=== PATIENT | male | born 1955 | race Two or more races ===

== ENCOUNTER 2019-01-08 07:08 | Outpatient (CLI) | payer OTHER | END 2019-01-08 07:11 | disposition home or self-care (01) | LOC: SONOGRAMA 07:08 | DX: R22.1 Localized swelling, mass and lump, neck (principal) ==

== ENCOUNTER 2022-10-22 07:09 | Outpatient (CLI) | payer OTHER | END 2022-10-22 07:16 | disposition home or self-care (01) | LOC: NUCLEAR 07:09 | PROVIDERS: ATTEND Internal Medicine | DX: I25.10 Atherosclerotic heart disease of native coronary artery without angina pectoris (principal) | CPT/HCPCS: 78452; 93017; A9500 ==